=== PATIENT | female | born 1935 | race Caucasian/White ===

== ENCOUNTER 2017-10-23 13:57 | Observation (INO) | payer MEDICARE, MEDICAID ==
--- NOTE | 2017-10-23 14:52 | ER Report ---
History and Physical Time Seen By MD: 14:51 Hx. of Stated Complaint: PATIENT HAVING N/V/D SINCE THURSDAY, MALLYGIC, IS ON BACTRIM FOR UTI BUT WASN'T ABLE TO KEEP DOWN TODAY HPI/ROS CC: Altered mental status HPI: 81-year-old female who is recently being treated for urinary tract infection on Bactrim presents to the emergency department with decreased level of consciousness. Family states that her lips been blue. She has been slightly slower in her response and mental processing. She denies any pain, nausea vomiting, chest pain or chest pressure, shortness of breath. Patient according to family has over the last week slightly deteriorated. She continues to eat. This did not nausea vomiting or diarrhea. ROS: 12 point review of systems essentially negative other than what's mentioned in history of present illness. NURSES AND OLD MEDICAL RECORDS: Reviewed PMH: Reviewed SURGICAL HX: Reviewed FAMILY HX: Noncontributory SOCIAL HX: Patient denies smoking alcohol or illicit drugs. VITAL SIGNS: Reviewed CONSTITUTIONAL: He female who does appear to be slightly cyanotic. PHYSICAL EXAM: HEENT: Pupils equal round reactive to light and accommodate, EOMI, tympanic membranes pearly white umbo present with good light reflex. Lips dry mucous membranes moist gums nonbleeding uvula midline and rises equally with phonation, oropharynx noninjected, teeth intact. NECK: Neck supple, thyroid not appreciated, anterior and posterior cervical lymphadenopathy not appreciated. Trachea midline and rises equally with phonation. CARDIAC: S1-S2 regular rate rhythm no murmurs rubs or gallops. LUNGS: Lungs right upper and right lower lungs with rhonchi and wheeze. ABDOMEN: Abdomen soft, nondistended, bowel sounds active in all 4 quadrants, no bruits noted, no CVA tenderness. MUSCULOSKELETAL: Strength 5 out of 5 x 4 extremities, no deformities noted. NEUROLOGIC: Patient alert and oriented by 3 Allergies: Coded Allergies: Penicillins (Verified Allergy, Intermediate, 10/23/17) Uncoded Allergies: FLU VACCINE (Allergy, Intermediate, 10/23/17) Constitutional Vital Sign - Last 24 Hours 10/23/17 10/23/17 10/23/17 14:20 14:59 15:14 Temp 98.9 Pulse 70 Resp 18 B/P (MAP) 89/59 O2 Delivery Room Air O2 Flow Rate 5.0 Medical Decision Making Data Points Result Diagram: 10/23/17 1514 10/23/17 1514 Laboratory Hematology Test 10/23/17 15:14 10/23/17 16:00 Red Blood Count 5.88 M/uL (4.17-5.56) Mean Corpuscular Volume 88.1 fL (80.0-96.0) Mean Corpuscular Hemoglobin 29.3 pg (26.0-33.0) Mean Corpuscular Hemoglobin Concent 33.2 g/dL (32.0-36.0) Red Cell Distribution Width 14.9 % (11.5-14.5) Mean Platelet Volume 9.3 fL (7.2-11.1) Neutrophils (%) (Auto) 66.0 % (39.4-72.5) Lymphocytes (%) (Auto) 10.8 % (17.6-49.6) Monocytes (%) (Auto) 21.5 % (4.1-12.4) Eosinophils (%) (Auto) 0.6 % (0.4-6.7) Basophils (%) (Auto) 1.1 % (0.3-1.4) Nucleated RBC Relative Count (auto) 0.1 /100WBC Neutrophils # (Auto) 8.7 K/uL (2.0-7.4) Lymphocytes # (Auto) 1.4 K/uL (1.3-3.6) Monocytes # (Auto) 2.8 K/uL (0.3-1.0) Eosinophils # (Auto) 0.1 K/uL (0.0-0.5) Basophils # (Auto) 0.1 K/uL (0.0-0.1) Nucleated RBC Absolute Count (auto) 0.01 K/uL Peripheral Blood Smear Yes Y/N Sodium Level 130 mmol/L (137-145) Potassium Level 3.8 mmol/L (3.5-5.0) Chloride Level 87 mmol/L (98-107) Carbon Dioxide Level 33 mmol/L (22-31) Blood Urea Nitrogen 27 mg/dl (7-18) Creatinine 0.80 mg/dl (0.52-1.04) Glomerular Filtration Rate Calc > 60.0 Random Glucose 100 mg/dl (75-110) Calcium Level 8.7 mg/dl (8.4-10.2) Magnesium Level 1.9 mg/dl (1.7-2.2) Total Bilirubin 0.6 mg/dl (0.2-1.3) Aspartate Amino Transf (AST/SGOT) 31 U/L (0-35) Alanine Aminotransferase (ALT/SGPT) 29 U/L (0-56) Alkaline Phosphatase 96 U/L (0-126) Ammonia 14 UMOL/L (9-33) Troponin I 0.015 ng/ml B-Type Natriuretic Peptide 538 pg/ml (0-100) Total Protein 7.2 gm/dl (6.3-8.2) Albumin 3.4 g/dl (3.5-5.0) Blood Gas Puncture Site Left radial Blood Gas Patient Temperature 98.9 DEGREES Arterial Blood pH 7.39 (7.35-7.45) Arterial Blood Partial Pressure CO2 54 mmHg (32-37) Arterial Blood Partial Pressure O2 82 mmHg (60-80) Arterial Blood HCO3 32 mmol/L (20-26) Arterial Blood Oxygen Saturation 96 % (92-100) Arterial Blood Base Excess 7.0 mmol/L Julián Test Acceptable Oxygen Liters/Minute 5l Chemistry Test 10/23/17 15:14 10/23/17 16:00 White Blood Count 13.1 k/uL (4.5-11.0) Red Blood Count 5.88 M/uL (4.17-5.56) Hemoglobin 17.2 g/dL (12.0-16.0) Hematocrit 51.8 % (34.0-47.0) Mean Corpuscular Volume 88.1 fL (80.0-96.0) Mean Corpuscular Hemoglobin 29.3 pg (26.0-33.0) Mean Corpuscular Hemoglobin Concent 33.2 g/dL (32.0-36.0) Red Cell Distribution Width 14.9 % (11.5-14.5) Platelet Count 307 K/uL (150-450) Mean Platelet Volume 9.3 fL (7.2-11.1) Neutrophils (%) (Auto) 66.0 % (39.4-72.5) Lymphocytes (%) (Auto) 10.8 % (17.6-49.6) Monocytes (%) (Auto) 21.5 % (4.1-12.4) Eosinophils (%) (Auto) 0.6 % (0.4-6.7) Basophils (%) (Auto) 1.1 % (0.3-1.4) Nucleated RBC Relative Count (auto) 0.1 /100WBC Neutrophils # (Auto) 8.7 K/uL (2.0-7.4) Lymphocytes # (Auto) 1.4 K/uL (1.3-3.6) Monocytes # (Auto) 2.8 K/uL (0.3-1.0) Eosinophils # (Auto) 0.1 K/uL (0.0-0.5) Basophils # (Auto) 0.1 K/uL (0.0-0.1) Nucleated RBC Absolute Count (auto) 0.01 K/uL Peripheral Blood Smear Yes Y/N Glomerular Filtration Rate Calc > 60.0 Calcium Level 8.7 mg/dl (8.4-10.2) Magnesium Level 1.9 mg/dl (1.7-2.2) Total Bilirubin 0.6 mg/dl (0.2-1.3) Aspartate Amino Transf (AST/SGOT) 31 U/L (0-35) Alanine Aminotransferase (ALT/SGPT) 29 U/L (0-56) Alkaline Phosphatase 96 U/L (0-126) Ammonia 14 UMOL/L (9-33) Troponin I 0.015 ng/ml B-Type Natriuretic Peptide 538 pg/ml (0-100) Total Protein 7.2 gm/dl (6.3-8.2) Albumin 3.4 g/dl (3.5-5.0) Blood Gas Puncture Site Left radial Blood Gas Patient Temperature 98.9 DEGREES Arterial Blood pH 7.39 (7.35-7.45) Arterial Blood Partial Pressure CO2 54 mmHg (32-37) Arterial Blood Partial Pressure O2 82 mmHg (60-80) Arterial Blood HCO3 32 mmol/L (20-26) Arterial Blood Oxygen Saturation 96 % (92-100) Arterial Blood Base Excess 7.0 mmol/L Julián Test Acceptable Oxygen Liters/Minute 5l EKG/Imaging EKG Interpretation Sinus rhythm with first-degree AV block, ventricular rate 61 bpm, SD interval 222 ms, QRS duration 82 ms, QTC 426 ms, QTC 428 ms. Imaging Chest x-ray: IMPRESSION: Subsegmental atelectasis at the lung bases. Stable prominence of the central pulmonary arteries suggestive of pulmonary arterial hypertension. Mildly hyperexpanded lungs. ED Course/Re-evaluation ED Course Patient with hypoxia. Patient was placed on oxygen. ABGs reveal CO2 retention with hypoxia. Patient appears to have both primary congestion and possible bacterial component with a pulmonary infection. Patient did receive Lasix for mild CHF. UA is pending. Patient also received Levaquin to cover her lungs and possible urinary tract infection. Patient is requiring 5 L nasal cannula for her hypoxia. Her SaO2 is 96% on 5 L nasal cannula. She is using accessory muscles with her respirations even though they're only at 18 respirations per minute. I discussed the case with Dr. López hospitalist. Patient will be admitted for further evaluation and treatment. Re-evaluation Medical decision making includes but not excluded to pneumonia, CHF, COPD exacerbation. Decision to Disposition Date: Oct 23, 2017 Decision to Disposition Time: 17:00 Depart Departure Latest Vital Signs Vital Signs Date Time Temp Pulse Resp B/P (MAP) Pulse Ox O2 Delivery O2 Flow Rate FiO2 10/23/17 15:14 5.0 10/23/17 14:59 98.9 10/23/17 14:20 70 18 89/59 Room Air Impression: Primary Impression: Hypoxia Additional Impressions: Mental status alteration Pneumonia Condition: Improved Disposition: Admitted from ER Referrals: NIKOLAS HEWITT PA-C (PCP) Problem Qualifiers Additional Impressions: Mental status alteration Altered mental status type: unspecified Qualified Codes: R41.82 - Altered mental status, unspecified Pneumonia Pneumonia type: due to unspecified organism Laterality: unspecified laterality Lung location: unspecified part of lung Qualified Codes: J18.9 - Pneumonia, unspecified organism MARK ANTHONY BOND MD Oct 23, 2017 14:52
[2017-10-23 15:30] LABS: PLATELET COUNT, AUTOMATED 307 K/uL (150-450)
[2017-10-23] MEDS ORDERED: LR 500 ML BAG 500 ML IV ONE (15:50)
--- NOTE | 2017-10-23 15:59 | RADIOLOGY IMAGING REPORT ---
FACILITY: [facility] PATIENT NAME: Christina Almeida : 1935 MR: [id number] V: [id number] EXAM DATE: ORDERING PHYSICIAN: MARK ANTHONY BOND TECHNOLOGIST: Location: [facility] Patient: Christina Almeida : 1935 Visit/Account:[id number] Date of Sevice: 10/23/2017 EXAMINATION: Portable chest radiograph single view at 3:24 PM HISTORY: Altered mental status. COMPARISON: Chest CT from 05/01/2016. FINDINGS: 2 portable AP views of the chest are obtained. Lines/tubes: None. Lungs/pleura: Mild elevation of the left hemidiaphragm. Streaky opacities at the lung bases. Mild hy perexpansion of the lungs. No evidence of pleural effusion or pneumothorax. Heart: Negative. Mediastinum: Stable prominence of the central pulmonary arteries. Calcified plaque of the thoracic a radha. Bony structures/body wall: Multilevel degenerative changes in the spine. Advanced degenerative panchal es of the glenohumeral joints. Mild right convex curvature of the thoracic spine. IMPRESSION: Subsegmental atelectasis at the lung bases. Stable prominence of the central pulmonary arteries suggestive of pulmonary arterial hypertension. Mildly hyperexpanded lungs. Report Dictated By: Aurelio Khan MD at 10/23/2017 3:40 PM Report E-Signed By: Aurelio Khan MD at 10/23/2017 3:56 PM WSN:[id number]
--- NOTE | 2017-10-23 16:17 | EKG ---
FACILITY: [facility] PATIENT NAME: KIRILL BAILEY : [id number] MR: [id number] V: [id number] EXAM DATE: ORDERING PHYSICIAN: MARK ANTHONY BOND TECHNOLOGIST: CYNTHIA Sanderson Reason : Blood Pressure : / mmHG Vent. Rate : 061 BPM Atrial Rate : 061 BPM P-R Int : 222 ms QRS Dur : 082 ms QT Int : 426 ms P-R-T Axes : 082 006 051 degrees QTc Int : 428 ms Sinus rhythm with 1st degree AV block Otherwise normal ECG No previous ECGs available Confirmed by GABY HERNANDEZ ([id number]) on 10/23/2017 7:01:03 PM Referred By: VARUN Confirmed By:GABY HERNANDEZ
[2017-10-23] MEDS ORDERED: FUROSEMIDE 40 MG/4 ML VIAL IVP ONE (16:45)
[2017-10-23] MEDS ORDERED: LEVOFLOXACIN 750 MG TAB PO ONE (16:45)
[2017-10-23] MEDS ORDERED: methylPREDNIS SUCC 125 MG/2ML IVP ONE (16:55)
[2017-10-23] MEDS ORDERED: ALBUTEROL/IPRATROPIUM 3 ML NEB NEB ONE (16:55)
[2017-10-23 17:55] VITALS: BP 140/71
[2017-10-23] MEDS ORDERED: ASPI-757 PO (18:09)
[2017-10-23] MEDS ORDERED: [UNRECOGNIZED DRUG - CODE] OP (18:09)
[2017-10-23] MEDS ORDERED: CALC-520 PO (18:09)
[2017-10-23] MEDS ORDERED: AMLO-99 PO (18:09)
[2017-10-23] MEDS ORDERED: ONDA-2 PO (18:09)
[2017-10-23] MEDS ORDERED: ALB0.5 IH (18:09)
[2017-10-23] MEDS ORDERED: ASPI-1471 PO (18:09)
[2017-10-23] MEDS ORDERED: [UNRECOGNIZED DRUG - CODE] TP (18:09)
[2017-10-23] MEDS ORDERED: GABA-549 PO ×2 (18:09)
[2017-10-23] MEDS ORDERED: ACET-1966 PO (18:09)
[2017-10-23] MEDS ORDERED: CLOT15CR64 TP (18:09)
[2017-10-23] MEDS ORDERED: TRAM-420 PO (18:09)
[2017-10-23] MEDS ORDERED: GUAI600T57 PO (18:09)
[2017-10-23] MEDS ORDERED: ATOR10TA65 PO (18:09)
[2017-10-23] MEDS ORDERED: MAG-65 PO (18:09)
[2017-10-23] MEDS ORDERED: DOCU50CA11 PO (18:09)
[2017-10-23] MEDS ORDERED: LOPE-84 PO (18:09)
[2017-10-23] MEDS ORDERED: SULF-198 PO (18:09)
[2017-10-23] MEDS ORDERED: ACETAMINOPHEN 325 MG TAB PO PRN (19:10)
[2017-10-23] MEDS ORDERED: ALBUTEROL 2.5 MG/3 ML NEB NEB PRN (19:10)
--- NOTE | 2017-10-23 19:26 | History & Physical ---
History of Present Illness Chief Complaint Nausea & Vomiting History of Present Illness This patient presented to the emergency room with complaints of nausea and vomiting over the past 3 days. Her family has also noted that she has been more confused. On arrival to the emergency room she was noted to be cyanotic. She does report that several others have had similar symptoms over the past week. History Problems: (1) Asthma (2) Pulmonary embolism Home Meds Reported Medications Calcium Carbonate (TUMS X-STR) 300 Mg Tab.chew, 2 TAB PO Q2H Y for HEARTBURN, TAB.CHEW 10/23/17 Tramadol Hcl (TRAMADOL HCL) 50 Mg Tablet, 2 TAB PO BID, TAB tAKES TWICE DAILY SCHEDULED AND ONE PRN DAILY NEEDED FOR PAIN 10/23/17 Ondansetron Hcl (ONDANSETRON HCL) 4 Mg Tablet, 4 MG PO Q6H Y for NAUSEA/VOMITING , TAB 10/23/17 Guaifenesin (MUCINEX) 600 Mg Tablet.er, 1 TAB PO BID Y for COUGH 10/23/17 Mag Hydrox/Aluminum Hyd/Simeth (Maalox Advanced Suspension) 200 Mg-200 Mg-20 Mg/ 5 Ml Oral.susp, 15-30 ML PO BID Y for CONSTIPATION 10/23/17 Gabapentin (GABAPENTIN) 300 Mg Capsule, 300 MG PO NOON, CAPSULE 10/23/17 Gabapentin (GABAPENTIN) 300 Mg Capsule, 2 CAP PO AM & hs, CAPSULE 10/23/17 Docusate Sodium (Colace Clear) 50 Mg Capsule, 1-2 CAP PO QDAY Y for CONSTIPATION 10/23/17 Clotrimazole/Betamethasone Dip (CLOTRIMAZOLE-BETAMETHASONE CRM) 15 Gm Cream..g. , 1 JEANNE TP Y for TO AFFECTED AREA 10/23/17 Sulfamethoxazole/Trimet 800-160 Mg Tab (BACTRIM DS TABLET) 1 Each Tablet, 1 TAB PO BID for 5 Days, TAB 10/23/17 Atorvastatin Calcium (ATORVASTATIN CALCIUM) 10 Mg Tablet, 1 TAB PO HS, TAB 10/23/17 Aspirin (ASPIR 81) 81 Mg Tablet.dr, 1 TAB PO QDAY, TAB 10/23/17 Aspirin (ASPIRIN) 325 Mg Tablet, 1 TAB PO Y for CHEST PAIN, TAB 10/23/17 Trolamine Salicylate/Aloe Vera (ASPERCREME 10% CREAM) 35.4 Gm Cream..g., 1 JEANNE TP QID Y for LOWER BACK & NECK PAIN, TUBE 10/23/17 Dextran 70/Hypromellose (ARTIFICIALS TEARS DROPS) 30 Ml Drops, 1 DROP OP PRN Y for DRY EYES 10/23/17 Loperamide Hcl (ANTI-DIARRHEAL) 2 Mg Capsule, 2 CAP PO NOT TO EXCEED 8, Y for DIARRHEA, CAPSULE 10/23/17 Amlodipine Besylate (AMLODIPINE BESYLATE) 10 Mg Tablet, 1 TAB PO QDAY, TAB 10/23/17 Albuterol Sulfate (ALBUTEROL SULFATE) 2.5 Mg/0.5 Ml Vial.neb, 2.5 MG IH TID Y for SHORTNESS OF BREATH 10/23/17 Acetaminophen (TYLENOL) 325 Mg Tablet, 1-2 TAB PO Q4H Y for PAIN/TEMP OVER 100.4 , TAB 10/23/17 Allergies: Coded Allergies: Penicillins (Verified Allergy, Intermediate, 10/23/17) Uncoded Allergies: FLU VACCINE (Allergy, Intermediate, 10/23/17) Review of Systems All Systems Reviewed/Normal: Yes, Except as Noted Gastrointestinal: Nausea, Vomiting Exam Vital Signs Vital Signs Date Time Temp Pulse Resp B/P (MAP) Pulse Ox O2 Delivery O2 Flow Rate FiO2 10/23/17 18:08 91 Nasal Cannula 3.0 10/23/17 17:55 99.0 62 24 140/71 (94) Neuro: No Gross deficits Eyes: PERRLA Cardiovascular: Regular Rate and Rhythm Respiratory: Clear to Auscultation GI: Other (Mild tenderness in epigastic region.) Extremities: No Edema Integumentary: No Cyanosis Medical Decision Making Data Points Result Diagram: 10/23/17 1514 10/23/17 1514 Item Value Date Time Urine Nitrite Positive H 10/23/17 1728 Urine Leukocyte Esterase Moderate H 10/23/17 1728 Item Value Date Time Arterial Blood pH 7.39 10/23/17 1600 Arterial Blood Partial Pressure CO2 54 mmHg *H 10/23/17 1600 Arterial Blood Partial Pressure O2 82 mmHg H 10/23/17 1600 Arterial Blood HCO3 32 mmol/L H 10/23/17 1600 Arterial Blood Oxygen Saturation 96 % 10/23/17 1600 EKG / Imaging Imaging Chest x-ray reviewed. Assessment and Plan Problems: (1) Hypoxia Status: Acute Assessment & Plan: She was noted to have hypoxia and circumoral cyanosis on arrival to the emergency room. Her oxygen saturations have improved with supplemental oxygen, but she does have a history of pulmonary embolism. A d- dimer has been ordered and we will proceed with CT angiogram if this is elevated. (2) Asthma exacerbation Assessment & Plan: She likely had mild exacerbation of her asthma. Her chest x -ray did not show a definitive infiltrate. We will start her on nebulizers and steroids. (3) UTI (urinary tract infection) Assessment & Plan: She was recently placed on Bactrim for a urinary infection, but we have no records of a urinalysis or culture. Her urine today showed nitrates and leukocytes, but it was a contaminated sample. She received a dose of levofloxacin in the emergency department prior to a urine culture being obtained. We will repeat a urinalysis and culture. We will place her on empiric treatment with ceftriaxone. Venous Thromboembolism Antithrombotics Is Pt On Any Antithrombotics?: No Exam Sepsis Risk: No Definite Risk GABY HERNANDEZ DO Oct 23, 2017 19:26
[2017-10-23] MEDS: ALBUTEROL/IPRATROPIUM 3 ML NEB NEB SCH (19:34)
[2017-10-23] MEDS: ATORVASTATIN 10 MG TAB PO SCH (20:08)
[2017-10-23 20:09] VITALS: BP 84/56
[2017-10-23] MEDS: NS(*) 0.9% 1000 ML BAG 1,000 ML IV PRN (20:09)
[2017-10-23] MEDS: cefTRIAXone 1 GM VIAL IVP SCH (20:09)
[2017-10-23 20:20] VITALS: BP 112/62
[2017-10-23] MEDS ORDERED: IOPAMIDOL 76% 75 ML INFUS BTL 75 ML ONE (22:19)
[2017-10-23] MEDS ORDERED: NS 0.9% 50 ML VIAL 100 ML ONE (22:19)
[2017-10-23 23:28] VITALS: BP 150/76
--- NOTE | 2017-10-23 23:57 | RADIOLOGY IMAGING REPORT ---
FACILITY: [facility] [place] PATIENT NAME: Christina Almeida : 1935 MR: [id number] V: [id number] EXAM DATE: ORDERING PHYSICIAN: GABY HERNANDEZ TECHNOLOGIST: [place] [facility] [place]: Christina Almeida : 1935 Visit/Account:[id number] Date of Sevice: 10/23/2017 CT angiogram of the chest: Indication: Hypoxia. Technique: Helical CT was performed through the chest following IV contrast enhancement with 75 cc of Isovue 370. Multiplanar reconstructions and MIP images are reviewed. There is streak artifact relate d to the position of the patient's arms. One of the following dose optimization techniques was utilized in the performance of this exam: Autom ated exposure control; adjustment of the mA and/or kV according to the patient's size; or use of an i terative reconstruction technique. Specific details can be referenced in the facility's radiology C T exam operational policy. Comparison: None. Pulmonary arteries: There is uniform contrast enhancement. There are no signs of pulmonary emboli. Th e central pulmonary arteries are dilated, suggesting chronic pulmonary hypertension. Aorta and great vessels: There is diffuse atherosclerotic calcification in the aortic wall. There are no signs of aneurysm. Heart and pericardial soft tissues: There is diffuse atherosclerotic calcification in the coronary ar teries. The heart appears mildly enlarged. No pericardial fluid is identified. Mediastinal soft tissues: Unremarkable. Lung jameson: There appear to be emphysematous changes in the upper lung jameson. There are small areas of consolidation at both bases, compatible with atelectasis. No mass or nodule is identified clearly identified. Pleural spaces: There is no evidence of effusion, thickening, calcification, or mass. Skeletal structures: There are chronic degenerative changes in the spine and shoulders. No acute skel etal deformity is identified. Upper abdomen: Unremarkable, as visualized. IMPRESSION: No evidence of pulmonary emboli. Chronic pulmonary hypertension is suspected. There are a telectatic opacities at both lung bases. Report Dictated By: Garth Marrero MD at 10/23/2017 11:42 PM Report E-Signed By: Garth Marrero MD at 10/23/2017 11:52 PM WSN:[id number]
[2017-10-24] MEDS: methylPREDNIS SUCC 125 MG/2ML IVP SCH ×3 (01:30→20:54)
[2017-10-24] MEDS: ALBUTEROL/IPRATROPIUM 3 ML NEB NEB SCH ×3 (05:52→17:15)
[2017-10-24 06:11] LABS: PLATELET COUNT, AUTOMATED 203 K/uL (150-450)
[2017-10-24 08:16] VITALS: BP 156/76
[2017-10-24] MEDS: ENOXAPARIN 40 MG/0.4ML SYR SC SCH (08:46)
[2017-10-24] MEDS ORDERED: GABAPENTIN 300 MG CAP PO SCH (12:00)
[2017-10-24 13:47] VITALS: BP 154/70
[2017-10-24] MEDS: GABAPENTIN 300 MG CAP PO SCH ×2 (13:55→20:54)
--- NOTE | 2017-10-24 15:12 | Hospitalist Progress Note ---
Subjective Progress Notes Subjective The patient denies nausea, vomiting or diarrhea. She overall feels better. Physical Exam Vital Signs Date Time Temp Pulse Resp B/P (MAP) Pulse Ox O2 Delivery O2 Flow Rate FiO2 10/24/17 13:47 98.8 81 20 154/70 (98) 94 Nasal Cannula 4.0 Intake and Output 10/25/17 07:01 Intake Total 0 ml Balance 0 ml Intake Oral 0 ml # Voids 1 General Appearance: Alert, Awake, No Acute Distress, Afebrile Neuro: No Gross deficits Eyes: PERRLA Cardiovascular: Regular Rate and Rhythm Respiratory: Other (Crackles in right bases which mostly clear with coughing. Otherwise clear.) GI: Soft and Non-Tender Extremities: Warm, Perfused Integumentary: Skin Intact without Lesion / Mass Psych: Appropriate Mood & Affect Result Diagram: 10/24/1751610/24/17516 Assessment and Plan Problems: (1) Hypoxia Status: Acute Assessment & Plan: She was noted to have hypoxia and circumoral cyanosis on arrival to the emergency room. Her oxygen saturations have improved with supplemental oxygen, but she does have a history of pulmonary embolism. A d- dimer was ordered and was elevated. CTA was negative. She likely has exacerbation of asthma. (2) Asthma exacerbation Assessment & Plan: She likely had mild exacerbation of her asthma. Her chest x -ray and CTA did not show a definitive infiltrate. We will start her on nebulizers and steroids. (3) UTI (urinary tract infection) Assessment & Plan: She was recently placed on Bactrim for a urinary infection, but we have no records of a urinalysis or culture. Her urine today showed nitrates and leukocytes, but it was a contaminated sample. A cath UA showed the same with moderate bacteria. She received a dose of levofloxacin in the emergency department prior to a urine culture being obtained. She has been placed on empiric treatment with ceftriaxone. Time Spent on Plan of Care: < 30 min Exam Sepsis Risk: No Definite Risk KHUSHBOO AUSTIN MD Oct 24, 2017 15:12
[2017-10-24 19:46] VITALS: BP 138/62
[2017-10-24] MEDS: cefTRIAXone 1 GM VIAL IVP SCH (20:53)
[2017-10-24] MEDS: ATORVASTATIN 10 MG TAB PO SCH (20:54)
[2017-10-25] MEDS: NS(*) 0.9% 1000 ML BAG 1,000 ML IV PRN (04:15)
[2017-10-25] MEDS: ALBUTEROL/IPRATROPIUM 3 ML NEB NEB SCH ×3 (05:22→17:53)
[2017-10-25 06:06] LABS: PLATELET COUNT, AUTOMATED 233 K/uL (150-450)
[2017-10-25 06:11] VITALS: BP 150/76
[2017-10-25 07:56] VITALS: BP 170/80
[2017-10-25] MEDS ORDERED: INFLUENZA VIRUS VAC 0.5 ML SYR IM ONLY ONE (09:00)
[2017-10-25] MEDS ORDERED: NS(*) 0.9% 1000 ML BAG 1,000 ML IV PRN (09:19)
[2017-10-25] MEDS: GABAPENTIN 300 MG CAP PO SCH ×3 (10:00→20:40)
[2017-10-25] MEDS: methylPREDNIS SUCC 125 MG/2ML IVP SCH ×2 (10:00→20:40)
[2017-10-25] MEDS: ENOXAPARIN 40 MG/0.4ML SYR SC SCH (10:01)
--- NOTE | 2017-10-25 12:06 | Hospitalist Progress Note ---
Subjective Progress Notes Subjective She reports some minor improvements. Feels weak. Physical Exam Vital Signs Date Time Temp Pulse Resp B/P (MAP) Pulse Ox O2 Delivery O2 Flow Rate FiO2 10/25/17 11:13 98 Nasal Cannula 3.0 10/25/17 11:13 79 14 10/25/17 07:56 98.9 170/80 (110) Intake and Output 10/26/17 07:01 Intake Total 0 ml Balance 0 ml Intake Oral 0 ml # Voids 1 # Bowel Movements 1 General Appearance: Alert, Awake Neuro: Other (tremor) Cardiovascular: Regular Rate and Rhythm Respiratory: Other (scattered rhonchi) GI: Soft and Non-Tender Extremities: Warm, Perfused Result Diagram: 10/25/1752410/25/17524 Assessment and Plan Problems: (1) UTI (urinary tract infection) Assessment & Plan: She was recently placed on Bactrim for a urinary infection, but we have no records of a urinalysis or culture. Her initial UA showed nitrates and leukocytes, but it appeared to be a contaminated sample. A repeat cath UA showed significant WBCs with moderate bacteria. She has been started on empiric treatment with ceftriaxone. Culture is pending (but she had received a dose of Levaquin before the sample was obtained). (2) Hypoxia Status: Acute Assessment & Plan: She was noted to have hypoxia/circumoral cyanosis on arrival to the emergency room. She does have a history of pulmonary embolism. Her d-dimer was elevated. CT pulmonary angiogram was negative for PE. She likely had an exacerbation of her asthma. She is fairly clear at this time. Will continue steroids and respiratory treatments. (3) Asthma exacerbation Assessment & Plan: She likely had mild exacerbation of her asthma. Her chest x -ray and CTA did not show a definitive infiltrate. We will continue her nebulizers and steroids. Exam Sepsis Risk: No Definite Risk AVA AUSTIN MD Oct 25, 2017 12:06
[2017-10-25 12:18] VITALS: BP 140/80
[2017-10-25 17:03] VITALS: BP 170/76
[2017-10-25 19:35] VITALS: BP 160/87
[2017-10-25] MEDS: cefTRIAXone 1 GM VIAL IVP SCH (19:39)
[2017-10-25] MEDS: ATORVASTATIN 10 MG TAB PO SCH (20:40)
[2017-10-25 22:31] VITALS: BP 180/88
[2017-10-26 02:42] VITALS: BP 168/76
[2017-10-26] MEDS: ALBUTEROL/IPRATROPIUM 3 ML NEB NEB SCH ×2 (05:18→11:06)
[2017-10-26 05:58] LABS: PLATELET COUNT, AUTOMATED 256 K/uL (150-450)
[2017-10-26] MEDS: GABAPENTIN 300 MG CAP PO SCH ×2 (09:23→12:00)
[2017-10-26] MEDS: ENOXAPARIN 40 MG/0.4ML SYR SC SCH (09:24)
--- NOTE | 2017-10-26 10:36 | Hospitalist Progress Note ---
Subjective Progress Notes Subjective This patient was admitted for urinary infection. She had no acute events overnight. Patient Complains of: Cardiovascular: No: Chest Pain Respiratory: No: Shortness of Breath Physical Exam Vital Signs Date Time Temp Pulse Resp B/P (MAP) Pulse Ox O2 Delivery O2 Flow Rate FiO2 10/26/17 05:23 93 Nasal Cannula 2.0 10/26/17 05:23 80 14 10/26/17 02:42 98.4 168/76 (106) Intake and Output 10/27/17 07:01 Intake Total 120 ml Balance 120 ml Intake Oral 120 ml Cardiovascular: Regular Rate and Rhythm Respiratory: Clear to Auscultation Result Diagram: 10/26/1752310/26/17523 Assessment and Plan Problems: (1) UTI (urinary tract infection) Assessment & Plan: She was recently placed on Bactrim for a urinary infection, but we have no records of a urinalysis or culture. Her initial UA showed nitrates and leukocytes, but it appeared to be a contaminated sample. A repeat cath UA showed significant WBCs with moderate bacteria. She was started on empiric treatment with ceftriaxone. Her culture was negative, but she did receive antibiotics prior to the culture. (2) Hypoxia Status: Acute Assessment & Plan: She was noted to have hypoxia/circumoral cyanosis on arrival to the emergency room. She does have a history of pulmonary embolism. Her d-dimer was elevated. CT pulmonary angiogram was negative for PE. (3) Asthma exacerbation Assessment & Plan: She likely had a mild exacerbation of her asthma. She was started on nebulizers and steroids. The steroids were discontinued today. Exam Sepsis Risk: No Definite Risk GABY HERNANDEZ DO Oct 26, 2017 10:36
[2017-10-26] MEDS ORDERED: CEF300 PO (13:48)
--- NOTE | 2017-10-26 13:50 | Hospitalist Depart ---
Discharge Summary Reason for Hosp/Final Diag: (1) UTI (urinary tract infection) Hospital Course & Plan: She was recently placed on Bactrim for a urinary infection, but we have no records of a urinalysis or culture. Her initial UA showed nitrates and leukocytes, but it appeared to be a contaminated sample. A repeat cath UA showed significant WBCs with moderate bacteria. She was started on empiric treatment with ceftriaxone. Her culture was negative, but she did receive antibiotics prior to the culture. We will have her complete a course of cefdinir. (2) Hypoxia Status: Acute Hospital Course & Plan: She was noted to have hypoxia/circumoral cyanosis on arrival to the emergency room. She does have a history of pulmonary embolism. Her d-dimer was elevated. CT pulmonary angiogram was negative for PE. (3) Asthma exacerbation Hospital Course & Plan: She likely had a mild exacerbation of her asthma. She was started on nebulizers and steroids. The steroids were discontinued. Departure Latest Vital Signs Vital Signs 10/26/17 10/26/17 10/26/17 02:42 11:05 11:08 Temp 98.4 Pulse 91 Resp 16 B/P (MAP) 168/76 (106) Pulse Ox 85 O2 Delivery Nasal Cannula O2 Flow Rate 1.5 Weight (Pounds): 142 Result Diagram: 10/26/1752310/26/17523 Condition: Improved Discharge: Home Health, Assisted Living PT/OT Follow Up For: PT For Strengthening Discharge Instructions Home Meds Active Scripts Cefdinir 300 Mg Cap (OMNICEF 300 MG CAP (OR EQUIV)) 300 Mg Cap, 300 MG PO BID, # 10 CAP Prov:GABY HERNANDEZ DO 10/26/17 Reported Medications Calcium Carbonate (TUMS X-STR) 300 Mg Tab.chew, 2 TAB PO Q2H Y for HEARTBURN, TAB.CHEW 10/23/17 Tramadol Hcl (TRAMADOL HCL) 50 Mg Tablet, 2 TAB PO BID, TAB tAKES TWICE DAILY SCHEDULED AND ONE PRN DAILY NEEDED FOR PAIN 10/23/17 Ondansetron Hcl (ONDANSETRON HCL) 4 Mg Tablet, 4 MG PO Q6H Y for NAUSEA/VOMITING , TAB 10/23/17 Guaifenesin (MUCINEX) 600 Mg Tablet.er, 1 TAB PO BID Y for COUGH 10/23/17 Mag Hydrox/Aluminum Hyd/Simeth (Maalox Advanced Suspension) 200 Mg-200 Mg-20 Mg/ 5 Ml Oral.susp, 15-30 ML PO BID Y for CONSTIPATION 10/23/17 Gabapentin (GABAPENTIN) 300 Mg Capsule, 300 MG PO NOON, CAPSULE 10/23/17 Gabapentin (GABAPENTIN) 300 Mg Capsule, 2 CAP PO AM & hs, CAPSULE 10/23/17 Docusate Sodium (Colace Clear) 50 Mg Capsule, 1-2 CAP PO QDAY Y for CONSTIPATION 10/23/17 Clotrimazole/Betamethasone Dip (CLOTRIMAZOLE-BETAMETHASONE CRM) 15 Gm Cream..g. , 1 JEANNE TP Y for TO AFFECTED AREA 10/23/17 Atorvastatin Calcium (ATORVASTATIN CALCIUM) 10 Mg Tablet, 1 TAB PO HS, TAB 10/23/17 Aspirin (ASPIR 81) 81 Mg Tablet.dr, 1 TAB PO QDAY, TAB 10/23/17 Trolamine Salicylate/Aloe Vera (ASPERCREME 10% CREAM) 35.4 Gm Cream..g., 1 JEANNE TP QID Y for LOWER BACK & NECK PAIN, TUBE 10/23/17 Dextran 70/Hypromellose (ARTIFICIALS TEARS DROPS) 30 Ml Drops, 1 DROP OP PRN Y for DRY EYES 10/23/17 Loperamide Hcl (ANTI-DIARRHEAL) 2 Mg Capsule, 2 CAP PO NOT TO EXCEED 8, Y for DIARRHEA, CAPSULE 10/23/17 Amlodipine Besylate (AMLODIPINE BESYLATE) 10 Mg Tablet, 1 TAB PO QDAY, TAB 10/23/17 Albuterol Sulfate (ALBUTEROL SULFATE) 2.5 Mg/0.5 Ml Vial.neb, 2.5 MG IH TID Y for SHORTNESS OF BREATH 10/23/17 Acetaminophen (TYLENOL) 325 Mg Tablet, 1-2 TAB PO Q4H Y for PAIN/TEMP OVER 100.4 , TAB 10/23/17 Discontinued Reported Medications Sulfamethoxazole/Trimet 800-160 Mg Tab (BACTRIM DS TABLET) 1 Each Tablet, 1 TAB PO BID for 5 Days, TAB 10/23/17 Aspirin (ASPIRIN) 325 Mg Tablet, 1 TAB PO Y for CHEST PAIN, TAB 10/23/17 Diet: Regular Activity: As Tolerated Venous Thromboembolism Antithrombotics Is Pt On Any Antithrombotics?: No [id number] Certification Face to Face Home Health Certification Institutional Provider conducted the [id number] encounter. Electronic Undersigning Physician Certifies Home Health. I certify that the patient has been under my care and that I had a [id number] encounter that meets the physician [id number] encounter requirements with this patient. This patient is home-bound due to safety issues and continues to require assistance with ADL's. I certify that based on my findings, that Nursing, Aides and the following Home Health services are medically necessary: Medical Necessity: Rehab Date Face to Face Conducted: Oct 26, 2017 GABY HERNANDEZ DO Oct 26, 2017 13:50
== END 2017-10-26 13:48 | disposition home or self-care (01) ==
LOC: ER 13:57 → INTOOBSV 17:12 → MED 17:12
PROVIDERS: ADMIT Family Medicine; ATTEND Family Medicine
DX: J18.9 Pneumonia, unspecified organism (principal); R41.82 Altered mental status, unspecified; R09.02 Hypoxemia; I44.0 Atrioventricular block, first degree; N39.0 Urinary tract infection, site not specified; J45.901 Unspecified asthma with (acute) exacerbation
CPT/HCPCS: 36415; 36600; 71045; 71275; 81001; 82140; 82803; 83735; 83880; 84443; 84484; 85025; 85379; 87088; 93005; 94640; 96372; 96374; 97161; 97165; 99285; A4353; A9270; G0378; J0696; J1650; J1940; J2930; J7030; J7050; J7613; J7620; Q9967; 82040; 82247; 82310; 82374; 82435; 82565; 82947; 84075; 84132; 84155; 84295; 84450; 84460; 84520

== ENCOUNTER → 2018-07-27 | Outpatient (CLI) | payer MEDICARE, MEDICAID ==
[~2018-07-27] MED LIST: ACET-1966 PO; ALB0.5 IH; AMLO-113 PO; ASPI-1471 PO; ASPI-757 PO; ATOR10TA65 PO; CALC-520 PO; CEF300 PO; CLOT15CR64 TP; DOCU50CA11 PO; GABA-549 PO; GUAI600T57 PO; LOPE-84 PO; MAG-65 PO; ONDA-2 PO; SULF-198 PO; TRAM-420 PO; [UNRECOGNIZED DRUG - CODE] OP; [UNRECOGNIZED DRUG - CODE] TP
[2018-07-27 09:07] LABS: LDL CHOLESTEROL 35 mg/dl
== END ==
LOC: ZZSPRING 00:22
PROVIDERS: ATTEND Physician Assistant
DX: E87.1 Hypo-osmolality and hyponatremia (principal); E78.2 Mixed hyperlipidemia; E04.2 Nontoxic multinodular goiter
CPT/HCPCS: 36415; 82040; 82247; 82310; 82374; 82435; 82465; 82565; 82947; 83718; 84075; 84132; 84155; 84295; 84443; 84450; 84460; 84478; 84520

== ENCOUNTER → 2018-08-18 | Outpatient (REF) | payer MEDICARE, MEDICAID | LOC: ZZSPRING 21:52 | PROVIDERS: ATTEND Physician Assistant | DX: R10.31 Right lower quadrant pain (principal) | CPT/HCPCS: 81001 ==

== ENCOUNTER → 2018-08-27 | Outpatient (REF) | payer MEDICARE, MEDICAID | LOC: ZZSPRING 10:46 | PROVIDERS: ATTEND Physician Assistant | DX: R19.5 Other fecal abnormalities (principal) | CPT/HCPCS: 87045; G0328; 82274 ==